=== PATIENT | male | born 1950 | race Caucasian/White ===

== ENCOUNTER → 2017-05-17 | Outpatient (CLI) | payer MEDICARE, OTHER ==
[~2017-05-17] MED LIST: ATOR40TA PO; CLOP75TA22 PO; FENT1PAT77 TD; FLUO20CA19 PO; HYDR-3307 PO; ISOS30TA19 PO; LEVO500T33 PO; LISI2.5T PO; LORA-446 PO; META800T PO; METO25TA35 PO; MULT-508 PO; NITR0.4T SL; PANT40TA3 PO
== END | disposition home or self-care (01) ==
LOC: CVU 12:02
PROVIDERS: ATTEND Internal Medicine Cardiovascular Disease
DX: I65.23 Occlusion and stenosis of bilateral carotid arteries (principal); I35.8 Other nonrheumatic aortic valve disorders; I10 Essential (primary) hypertension; I25.10 Atherosclerotic heart disease of native coronary artery without angina pectoris; Z95.1 Presence of aortocoronary bypass graft; Z95.5 Presence of coronary angioplasty implant and graft
CPT/HCPCS: 93306; 93880

== ENCOUNTER 2018-04-05 12:33 | Emergency (ER) | payer MEDICARE, OTHER ==
[~2018-04-05] VITALS: Ht 177.8 cm; Wt 83.9 kg
[~2018-04-05 12:33] MED LIST changes: -CLOP75TA22 PO; +CLOP75TA52 PO; -ISOS30TA19 PO; +ISOS30TA21 PO; -LEVO500T33 PO; +LEVO500T47 PO
[2018-04-05 13:39] LABS: BASOPHILS # (AUTO) 0.09 x10^3/uL (0-0.1); BASOPHILS % (AUTO) 1 % (0-1); EOSINOPHILS % (AUTO) 6 % (1-7); LYMPHOCYTES # (AUTO) 1.45 x10^3/uL (1-3.4); LYMPHOCYTES % (AUTO) 22 % (22-44); MD NO; MEAN CORPUSCULAR HEMOGLOBIN 29.8 pg (27.5-34.5); MEAN CORPUSCULAR HGB CONC 32.7 g/dL (33.2-36.2); MEAN PLATELET VOLUME 9.3 fL (7.4-10.4); MONOCYTES # (AUTO) 0.86 x10^3/uL (0.2-0.8); MONOCYTES % (AUTO) 13 % (2-9); NEUTROPHILS # (AUTO) 3.94 x10^3/uL (1.8-6.8); NEUTROPHILS % (AUTO) 59 % (42-75); PLATELET COUNT 197 x10^3/uL (130-400); RED BLOOD COUNT 6.01 x10^6/uL (4.38-5.82); RED CELL DISTRIBUTION WIDTH 15.9 % (9.4-14.8)
[2018-04-05 15:34] LABS: ALBUMIN 3.7 g/dL (3.4-5.0); ANION GAP 5 mmol/L (5-15); CALCIUM 9.9 mg/dL (8.5-10.1); CHLORIDE 106 mmol/L (98-107); CREATININE 2.37 mg/dL (0.7-1.3)
[2018-04-05 16:27] LABS: MICROSCOPIC NOT IND
[2018-04-05 16:31] LABS: CULTURE INDICATED? NO
[2018-04-05 17:12] VITALS: BP 93/60
== END 2018-04-05 17:14 | disposition home or self-care (01) ==
LOC: ED 14:42
DX: N18.9 Chronic kidney disease, unspecified (principal); I25.2 Old myocardial infarction; Z87.891 Personal history of nicotine dependence; Z95.0 Presence of cardiac pacemaker; Z95.818 Presence of other cardiac implants and grafts
CPT/HCPCS: 36415; 80048; 81003; 82040; 85025; 93005; 99285

== ENCOUNTER 2018-04-11 04:15 | Inpatient (IN) | payer MEDICARE, OTHER ==
[~2018-04-11] VITALS: Ht 177.8 cm; Wt 95.4 kg
[2018-04-11] MEDS ORDERED: MECLIZINE CHEWABLE 25 MG TAB ONE (04:57)
[2018-04-11] MEDS ORDERED: SODIUM CHLORIDE FLUSH 10ML SYR IVF ONE (05:00)
[2018-04-11] MEDS ORDERED: MECLIZINE CHEWABLE 25 MG TAB PO ONE (05:00)
[2018-04-11] MEDS ORDERED: TAMS-11 PO (05:18)
[2018-04-11 05:44] LABS: BASOPHILS # (AUTO) 0.02 x10^3/uL (0-0.1); BASOPHILS % (AUTO) 0 % (0-1); EOSINOPHILS # (AUTO) 0.15 x10^3/uL (0-0.4); EOSINOPHILS % (AUTO) 2 % (1-7); LYMPHOCYTES # (AUTO) 0.99 x10^3/uL (1-3.4); LYMPHOCYTES % (AUTO) 11 % (22-44); MD NO; MEAN CORPUSCULAR HEMOGLOBIN 29.8 pg (27.5-34.5); MEAN CORPUSCULAR HGB CONC 32.9 g/dL (33.2-36.2); MEAN CORPUSCULAR VOLUME 90.7 fL (81-97); MEAN PLATELET VOLUME 9.3 fL (7.4-10.4); MONOCYTES # (AUTO) 0.66 x10^3/uL (0.2-0.8); MONOCYTES % (AUTO) 7 % (2-9); NEUTROPHILS % (AUTO) 81 % (42-75); PLATELET COUNT 171 x10^3/uL (130-400); RED BLOOD COUNT 5.67 x10^6/uL (4.38-5.82); RED CELL DISTRIBUTION WIDTH 16.5 % (9.4-14.8)
[2018-04-11 05:52] LABS: ALBUMIN 3.8 g/dL (3.4-5.0); ANION GAP 8 mmol/L (5-15); CALCIUM 9.5 mg/dL (8.5-10.1); CHLORIDE 108 mmol/L (98-107)
[2018-04-11 05:57] LABS: ALANINE AMINOTRANSFERASE 25 U/L (12-78); ALKALINE PHOSPHATASE 58 U/L (45-117); BILIRUBIN,TOTAL 0.6 mg/dL (0.2-1.0); CREATININE 2.02 mg/dL (0.7-1.3); TOTAL PROTEIN 7.8 g/dL (6.4-8.2); TROPONIN I < 0.015 ng/mL (0.000-0.045)
[2018-04-11] MEDS ORDERED: DIAZEPAM 5 MG TABLET ONE (06:40)
[2018-04-11] MEDS ORDERED: DIAZEPAM 5 MG TABLET PO ONE (07:00)
[2018-04-11] MEDS ORDERED: HYDR1DIS4 IMPLANT (08:14)
[2018-04-11] MEDS ORDERED: LORazepam 1MG TABLET PO PRN (09:00)
[2018-04-11] MEDS ORDERED: DOCUSATE 100 MG CAPSULE PO PRN (09:00)
[2018-04-11] MEDS ORDERED: HYDROmorphone 2 MG/ML, 1ML IVPush PRN (09:00)
[2018-04-11] MEDS ORDERED: ONDANSETRON 2MG/ML, 2ML IVPush PRN (09:00)
[2018-04-11] MEDS ORDERED: NITROGLYCERIN 0.4 MG BOTTLE (25 TABS) SL PRN (09:00)
[2018-04-11] MEDS ORDERED: OXYcodone IR 5MG TABLET PO PRN (09:00)
[2018-04-11] MEDS ORDERED: ONDANSETRON ODT 4 MG PO PRN (09:00)
[2018-04-11] MEDS ORDERED: ACETAMINOPHEN 325 MG TABLET PO PRN (09:00)
[2018-04-11 09:24] VITALS: BP 112/68
[2018-04-11] MEDS: [UNRECOGNIZED DRUG - REMARK] MC SCH ×2 (09:30→17:30)
[2018-04-11 09:39] LABS: THYROID STIMULATING HORMONE 2.61 mIU/L (0.358-3.740)
[2018-04-11 09:59] LABS: HEMOGLOBIN A1C 5.9 % (4.2-6.3)
[2018-04-11] MEDS ORDERED: SODIUM CHLORIDE 0.9% 1,000 ML IV SCH (10:00)
[2018-04-11] MEDS ORDERED: MAGNESIUM SULFATE PMX 4GM/100M 100 ML IV ONE (12:00)
[2018-04-11] MEDS: MULTIVITAMINS/MINERALS TABLET PO SCH (12:16)
[2018-04-11] MEDS: ISOSORBIDE DINITRATE 30 MG TABLET PO SCH (12:16)
[2018-04-11] MEDS: FLUOXETINE HCL 20 MG CAPSULE PO SCH (12:17)
[2018-04-11] MEDS: METOPROLOL TARTRATE 25 MG TABLET PO SCH (12:17)
[2018-04-11] MEDS: TAMSULOSIN 0.4 MG CAP.ER.24H PO SCH ×2 (12:17→20:43)
[2018-04-11] MEDS: CLOPIDOGREL 75 MG TABLET PO SCH (12:17)
[2018-04-11] MEDS: LISINOPRIL 5 MG TABLET PO SCH (12:18)
[2018-04-11] MEDS: HEPARIN 5,000 UNITS/ML, 1ML SQ SCH ×2 (12:19→20:41)
[2018-04-11 12:32] LABS: MICROSCOPIC NOT IND
[2018-04-11 12:38] LABS: CULTURE INDICATED? NO
[2018-04-11 12:57] VITALS: BP 94/61
[2018-04-11] MEDS: PANTOPROZOLE 40MG TABLET PO SCH (13:06)
[2018-04-11] MEDS: MECLIZINE CHEWABLE 25 MG TAB PO SCH ×2 (16:00→20:42)
[2018-04-11] MEDS: ATORVASTATIN 40 MG TABLET PO SCH (20:42)
[2018-04-11 20:59] VITALS: BP 98/61
[2018-04-11 21:00] VITALS: BP 96/57
[2018-04-11 21:04] VITALS: BP 111/55
[2018-04-12] VITALS (7 sets, daily range): BP systolic 96–112; BP diastolic 59–69
[2018-04-12] MEDS: [UNRECOGNIZED DRUG - REMARK] MC SCH ×3 (01:14→09:36)
[2018-04-12] MEDS: HEPARIN 5,000 UNITS/ML, 1ML SQ SCH ×3 (04:43→22:36)
[2018-04-12 05:56] LABS: CHLORIDE 113 mmol/L (98-107)
[2018-04-12 06:06] LABS: CALCIUM 9.3 mg/dL (8.5-10.1); CHOL/HDL RATIO 3.8; CHOLESTEROL, TOTAL 120 mg/dL (140-239); CREATININE 1.67 mg/dL (0.7-1.3); HDL CHOL % 27 % (26-37); HDL CHOLESTEROL (DIRECT) 32 mg/dL (40-60); LDL CHOLESTEROL,CALCULATED 44 mg/dL (54-169); LDL/HDL RATIO 1.4 (0.5-3.0); TRIGLYCERIDES 219 mg/dL (50-200); VLDL CHOLESTEROL 44 mg/dL (0-25)
[2018-04-12 06:35] LABS: ANION GAP 5 mmol/L (5-15)
[2018-04-12] MEDS: LISINOPRIL 5 MG TABLET PO SCH (07:49)
[2018-04-12] MEDS: TAMSULOSIN 0.4 MG CAP.ER.24H PO SCH ×2 (07:49→22:34)
[2018-04-12] MEDS: FLUOXETINE HCL 20 MG CAPSULE PO SCH (07:49)
[2018-04-12] MEDS: METOPROLOL TARTRATE 25 MG TABLET PO SCH (07:50)
[2018-04-12] MEDS: ISOSORBIDE DINITRATE 30 MG TABLET PO SCH (07:50)
[2018-04-12] MEDS: MULTIVITAMINS/MINERALS TABLET PO SCH (07:50)
[2018-04-12] MEDS: PANTOPROZOLE 40MG TABLET PO SCH (07:50)
[2018-04-12] MEDS: MECLIZINE CHEWABLE 25 MG TAB PO SCH (07:50)
[2018-04-12] MEDS: CLOPIDOGREL 75 MG TABLET PO SCH (07:50)
[2018-04-12] MEDS ORDERED: LORazepam 1MG TABLET PO PRN (10:00)
[2018-04-12] MEDS ORDERED: CETIRIZINE 10 MG TABLET PO PRN (13:00)
[2018-04-12] MEDS: ATORVASTATIN 40 MG TABLET PO SCH (22:34)
[2018-04-12] MEDS: FLUTICASONE NASAL SPRAY 16GM NAS SCH (22:35)
[2018-04-12] MEDS: SODIUM CHLORIDE NASAL SPRAY 45ML BOTTLE NAS SCH (22:35)
[2018-04-13 01:04] VITALS: BP 102/59
[2018-04-13] MEDS: HEPARIN 5,000 UNITS/ML, 1ML SQ SCH ×2 (04:00→11:22)
[2018-04-13 05:23] LABS: CHLORIDE 111 mmol/L (98-107)
[2018-04-13 05:27] LABS: ANION GAP 7 mmol/L (5-15); CALCIUM 10.2 mg/dL (8.5-10.1); CREATININE 1.85 mg/dL (0.7-1.3)
[2018-04-13] MEDS: [UNRECOGNIZED DRUG - REMARK] MC SCH (07:00)
[2018-04-13] MEDS: TAMSULOSIN 0.4 MG CAP.ER.24H PO SCH (08:44)
[2018-04-13] MEDS: ISOSORBIDE DINITRATE 30 MG TABLET PO SCH (08:44)
[2018-04-13] MEDS: MULTIVITAMINS/MINERALS TABLET PO SCH (08:44)
[2018-04-13] MEDS: PANTOPROZOLE 40MG TABLET PO SCH (08:44)
[2018-04-13] MEDS: CLOPIDOGREL 75 MG TABLET PO SCH (08:44)
[2018-04-13] MEDS: FLUOXETINE HCL 20 MG CAPSULE PO SCH (08:44)
[2018-04-13 08:45] VITALS: BP 97/62
[2018-04-13] MEDS: FLUTICASONE NASAL SPRAY 16GM NAS SCH (08:47)
[2018-04-13] MEDS: SODIUM CHLORIDE NASAL SPRAY 45ML BOTTLE NAS SCH (08:47)
[2018-04-13] MEDS: LISINOPRIL 5 MG TABLET PO SCH (08:48)
[2018-04-13] MEDS ORDERED: FINASTERIDE 5 MG TABLET PO SCH (09:00)
[2018-04-13] MEDS ORDERED: METOPROLOL TARTRATE 25 MG TABLET PO SCH (09:00)
== END 2018-04-13 13:16 | disposition home or self-care (01) | DRG 695 ==
LOC: ED 07:53 → EDIP 07:54 → ED 07:56 → 4EST 09:05
PROVIDERS: ADMIT Hospitalist; ATTEND Hospitalist
DX: R33.8 Other retention of urine (principal); N17.0 Acute kidney failure with tubular necrosis; I50.30 Unspecified diastolic (congestive) heart failure; F32.9 Major depressive disorder, single episode, unspecified; F41.9 Anxiety disorder, unspecified; N40.1 Benign prostatic hyperplasia with lower urinary tract symptoms; I73.9 Peripheral vascular disease, unspecified; K21.9 Gastro-esophageal reflux disease without esophagitis; N18.9 Chronic kidney disease, unspecified; I71.4 Abdominal aortic aneurysm, without rupture; R73.9 Hyperglycemia, unspecified; M54.2 Cervicalgia; I44.0 Atrioventricular block, first degree; M54.5 Low back pain; I37.1 Nonrheumatic pulmonary valve insufficiency; I35.1 Nonrheumatic aortic (valve) insufficiency; G89.29 Other chronic pain; H91.90 Unspecified hearing loss, unspecified ear; H93.19 Tinnitus, unspecified ear; I25.10 Atherosclerotic heart disease of native coronary artery without angina pectoris; Z95.5 Presence of coronary angioplasty implant and graft; Z95.1 Presence of aortocoronary bypass graft; Z86.74 Personal history of sudden cardiac arrest; Z83.3 Family history of diabetes mellitus; I25.2 Old myocardial infarction; Y82.8 Other medical devices associated with adverse incidents; Y92.89 Other specified places as the place of occurrence of the external cause; T50.905A Adverse effect of unspecified drugs, medicaments and biological substances, initial encounter
CPT/HCPCS: 36415; 70450; 71045; 76770; 80048; 80053; 80061; 81003; 82550; 82607; 83036; 83735; 84443; 84484; 85025; 93005; 93306; 93880; 99285; J1644; J3475; J7030

== ENCOUNTER → 2018-09-02 | Outpatient (CLI) | payer MEDICARE, OTHER ==
[~2018-09-02] MED LIST changes: +HYDR1DIS4 IMPLANT; +TAMS-11 PO
== END | disposition home or self-care (01) ==
LOC: CVU 11:08
PROVIDERS: ATTEND Internal Medicine Cardiovascular Disease
DX: I65.23 Occlusion and stenosis of bilateral carotid arteries (principal); I10 Essential (primary) hypertension; E78.5 Hyperlipidemia, unspecified; I25.10 Atherosclerotic heart disease of native coronary artery without angina pectoris; Z79.891 Long term (current) use of opiate analgesic; Z95.1 Presence of aortocoronary bypass graft
CPT/HCPCS: 93880

== ENCOUNTER → 2019-07-25 | Outpatient (CLI) | payer MEDICARE, OTHER ==
[~2019-07-25] MED LIST changes: -HYDR-3307 PO; +HYDR-36 PO; -NITR0.4T SL; +NITR0.4T41 SL; +OMNIPAQUE 350 MG/ML, 100ML BOTTLE ONE
[2019-07-25 10:51] LABS: CREATININE 1.78 mg/dL (0.7-1.3)
== END | disposition home or self-care (01) ==
LOC: RAD 09:52
PROVIDERS: ATTEND Urology
DX: C61 Malignant neoplasm of prostate (principal); M51.36 Other intervertebral disc degeneration, lumbar region; M19.079 Primary osteoarthritis, unspecified ankle and foot; K76.0 Fatty (change of) liver, not elsewhere classified; N28.1 Cyst of kidney, acquired; I70.0 Atherosclerosis of aorta; I71.9 Aortic aneurysm of unspecified site, without rupture; K57.30 Diverticulosis of large intestine without perforation or abscess without bleeding; Z96.89 Presence of other specified functional implants; N40.0 Benign prostatic hyperplasia without lower urinary tract symptoms; J43.9 Emphysema, unspecified
CPT/HCPCS: 36415; 71260; 74177; 78306; 82565; A9503; Q9967

== ENCOUNTER → 2019-08-14 | Outpatient (CLI) | payer MEDICARE, OTHER ==
[~2019-08-14] MED LIST changes: -OMNIPAQUE 350 MG/ML, 100ML BOTTLE ONE
== END | disposition home or self-care (01) ==
LOC: RAD 12:43
PROVIDERS: ATTEND Radiology Radiation Oncology
DX: I70.202 Unspecified atherosclerosis of native arteries of extremities, left leg (principal); M11.252 Other chondrocalcinosis, left hip; M11.262 Other chondrocalcinosis, left knee; M16.12 Unilateral primary osteoarthritis, left hip; C61 Malignant neoplasm of prostate

== ENCOUNTER → 2019-09-04 | Outpatient (CLI) | payer MEDICARE, OTHER | END | disposition home or self-care (01) | LOC: PETCFH 08-27 13:31 | PROVIDERS: ATTEND Radiology Radiation Oncology | DX: C61 Malignant neoplasm of prostate (principal); F17.200 Nicotine dependence, unspecified, uncomplicated | CPT/HCPCS: 78815; A9588 ==

== ENCOUNTER → 2020-03-23 | Outpatient (CLI) | payer MEDICARE, OTHER ==
[~2020-03-23] MED LIST changes: +HYDR-3246 PO; -HYDR-36 PO
== END | disposition home or self-care (01) ==
LOC: CVU 10:39
PROVIDERS: ATTEND Internal Medicine Cardiovascular Disease
DX: I08.3 Combined rheumatic disorders of mitral, aortic and tricuspid valves (principal); I11.9 Hypertensive heart disease without heart failure; I25.10 Atherosclerotic heart disease of native coronary artery without angina pectoris
CPT/HCPCS: 93306

== ENCOUNTER 2020-03-29 08:06 | Outpatient (CLI) | payer MEDICARE, OTHER ==
[~2020-03-29 08:06] MED LIST changes: +REGADENOSON 0.4 MG/5 ML SYRINGE ONE
== END 2020-03-29 23:59 | disposition home or self-care (01) ==
LOC: CFH 08:06
PROVIDERS: ATTEND Physician Assistant Medical
DX: I25.10 Atherosclerotic heart disease of native coronary artery without angina pectoris (principal); R07.9 Chest pain, unspecified
CPT/HCPCS: 78452; 93017; A9502; J2785